=== PATIENT | female | born 1980 ===

== ENCOUNTER 2016-09-12 07:31 | Emergency (ER) | payer OTHER ==
[2016-09-12 07:48] VITALS: BP 122/86; PULSE 73; RESP 16; TEMP 97.8; O2SAT 100
== END 2016-09-12 08:23 | disposition home or self-care (01) ==
LOC: ED 07:31
DX: J02.0 Streptococcal pharyngitis (principal)
CPT/HCPCS: 87430; 99282

== ENCOUNTER 2017-04-26 19:17 | Emergency (ER) | payer OTHER ==
[2017-04-26 19:29] VITALS: BP 115/81; PULSE 91; RESP 18; TEMP 98.2; O2SAT 94
== END 2017-04-26 20:28 | disposition home or self-care (01) ==
LOC: ED 19:17
DX: S62.625A Displaced fracture of middle phalanx of left ring finger, initial encounter for closed fracture (principal); W22.8XXA Striking against or struck by other objects, initial encounter; Y93.72 Activity, wrestling
CPT/HCPCS: 73130; 99282

== ENCOUNTER 2017-05-08 11:33 | Outpatient (CLI) | payer OTHER ==
[2017-04-26 19:29] VITALS: O2SAT 94
== END 2017-05-08 11:34 | disposition home or self-care (01) ==
LOC: CONVCARE 11:33
PROVIDERS: ATTEND Orthopaedic Surgery
DX: S62.625D Displaced fracture of middle phalanx of left ring finger, subsequent encounter for fracture with routine healing (principal); Z98.890 Other specified postprocedural states
CPT/HCPCS: 73140

== ENCOUNTER 2017-05-22 07:39 | Outpatient (CLI) | payer OTHER ==
[2017-04-26 19:29] VITALS: O2SAT 94
== END 2017-05-22 07:40 | disposition home or self-care (01) ==
LOC: CONVCARE 07:39
PROVIDERS: ATTEND Orthopaedic Surgery
DX: S62.605D Fracture of unspecified phalanx of left ring finger, subsequent encounter for fracture with routine healing (principal)
CPT/HCPCS: 73140

== ENCOUNTER 2017-06-19 09:06 | Outpatient (CLI) | payer OTHER ==
[2017-04-26 19:29] VITALS: O2SAT 94
== END 2017-06-19 09:07 | disposition home or self-care (01) ==
LOC: CONVCARE 09:06
PROVIDERS: ATTEND Orthopaedic Surgery
DX: S62.625D Displaced fracture of middle phalanx of left ring finger, subsequent encounter for fracture with routine healing (principal)
CPT/HCPCS: 73140